=== PATIENT | female | born 1930 | race Caucasian/White ===

== ENCOUNTER → 2019-05-11 | Outpatient (CLI) | payer MEDICARE ==
--- NOTE | 2019-05-11 16:32 | RADIOLOGY REPORT (SQ) ---
EXAM DESCRIPTION: CT ABD/PELVIS WITH IV ORAL COMPLETED DATE/TIME: 05/11/2019 4:11 pm REASON FOR STUDY: R10.9 UNSPECIFIED ABDOMINAL PAIN R10.9 UNSPECIFIED ABDOMINAL PAIN COMPARISON: None. TECHNIQUE: CT scan of the abdomen and pelvis performed using helical scanning technique with dynamic intravenous contrast injection. No oral contrast. Images reviewed with lung, soft tissue, and bone windows. Reconstructed coronal and sagittal MPR images reviewed. Delayed images for evaluation of the urinary system also acquired. All images stored on PACS. All CT scanners at this facility use dose modulation, iterative reconstruction, and/or weight based d osing when appropriate to reduce radiation dose to as low as reasonably achievable (ALARA). [facility]: Dose Right [facility]: CareDose [facility]: Dose Right [facility]: Teradose 4D [facility]: eSentire CONTRAST TYPE AND DOSE: contrast/concentration: Isovue 350.00 mg/ml; Total Contrast Delivered: 78.0 ml; Total Saline Delivered: 67.0 ml RENAL FUNCTION: Creatinine 1.4 RADIATION DOSE: CT Rad equipment meets quality standard of care and radiation dose reduction techniq ues were employed. CTDIvol: 10.3 - 10.4 mGy. DLP: 952 mGy-cm.. LIMITATIONS: None. FINDINGS: LOWER CHEST: Small right pleural effusion. LIVER: Fatty infiltrated liver. No focal masses. SPLEEN: Normal size. No focal lesions. PANCREAS: Atrophic pancreas. GALLBLADDER: Surgically absent. ADRENAL GLANDS: No significant masses or asymmetry. RIGHT KIDNEY AND URETER: No solid masses. 5.6 cm cyst. No significant calcifications. No hydrone phrosis or hydroureter. LEFT KIDNEY AND URETER: No solid masses. No significant calcifications. No hydronephrosis or hydr oureter. AORTA AND VESSELS: Atherosclerotic change. Calcified plaque at the origin the celiac axis, SMA and b oth renal arteries. Probable significant stenosis of the origin of the right renal artery. No more than 50% stenosis at the origin of the celiac axis and SMA. The SIDNEY appears widely patent. RETROPERITONEUM: No retroperitoneal adenopathy, hemorrhage or masses. BOWEL AND PERITONEAL CAVITY: Diffuse thickening of the colonic wall. Findings are consistent with co litis. This could be infectious or inflammatory. Ischemic colitis is thought to be less likely. Ch anges appear most pronounced in the sigmoid colon. No free air. No focal fluid collections. APPENDIX: Surgically absent. PELVIS: No mass. No free fluid. Normal bladder. ABDOMINAL WALL: Prior anterior abdominal wall hernia repair with mesh in place. Small residual umbil ical hernia containing omental fat. BONES: Degenerative changes. OTHER: No other significant finding. IMPRESSION: Pancolitis. This could be infectious, inflammatory or ischemic. Changes appear most se bladimir in the sigmoid colon. TECHNICAL DOCUMENTATION: JOB ID: [id number] Quality ID # [id number]: Final reports with documentation of one or more dose reduction techniques (e.g., Au tomated exposure control, adjustment of the mA and/or kV according to patient size, use of iterative reconstruction technique) 2010 [employer]- All Rights Reserved Reading location - IP/workstation name: [email or web address]
== END ==
LOC: RAD 13:31
PROVIDERS: ATTEND Nurse Practitioner Primary Care
DX: K51.00 Ulcerative (chronic) pancolitis without complications (principal); R10.9 Unspecified abdominal pain
CPT/HCPCS: 74177; 82565